=== PATIENT | male | born 1955 | race Caucasian/White ===

== ENCOUNTER 2019-05-10 10:07 | Emergency (ER) | payer SELFPAY ==
[2019-05-10] MEDS ORDERED: Morphine 2 MG/ML SYRINGE ONE (10:21)
[2019-05-10] MEDS ORDERED: Ondansetron PF 4 MG/2 ML Vial ONE (10:21)
[2019-05-10 10:53] LABS: #Basophils 0.1 thou/uL (0.0-0.2); #Eosinphils 0.1 thou/uL (0.0-0.7); #Lymphocytes 1.6 thou/uL (1.20-3.40); #Monocytes 0.3 thou/uL (0.11-0.59); #Neutrophils 5.8 thou/uL (1.40-6.50); %Basophils 1.2 % (0.0-1.0); %Eosinophils 1.2 % (0.0-10.0); %Lymphocytes 19.8 % (21.0-51.0); %Monocytes 4.3 % (0.0-10.0); %Neutrophils 73.5 % (42.0-75.0); Hemoglobin 14.8 g/dL (14.0-18.0); Mean Corpuscular HGB CONC 34.2 g/dL (32.0-36.0); Mean Corpuscular Hemoglobin 31.7 pg (27.0-31.0); Mean Corpuscular Volume 92.5 fL (78.0-98.0); Mean Platelet Volume 8.6 fL (7.4-10.4); Platelet Count 195 thou/uL (130-400); RBC Distribution Width 11.3 % (11.5-14.5); Red Blood Cell (RBC) Count 4.65 mill/uL (4.70-6.10); White Blood Cell (WBC) Count 7.9 thou/uL (4.8-10.8)
[2019-05-10 10:54] LABS: ALT (SGPT) 24 U/L (8-55); AST (SGOT) 18 U/L (5-34); Albumin 3.9 g/dL (3.4-4.8); Alkaline Phosphatase 112 U/L (40-110); Anion Gap 16 mmol/L (10-20); BUN (Urea Nitrogen) 10 mg/dL (8.4-25.7); Bilirubin, Total 0.4 mg/dL (0.2-1.2); Calc. Creatinine Clearance 0 mL/min (70-130); Calcium 9.7 mg/dL (7.8-10.44); Carbon Dioxide 24 mmol/L (23-31); Chloride 103 mmol/L (98-107); Estimated GFR-MDRD Greater than 90; Globulin 3.2 g/dL (2.4-3.5); Glucose 127 mg/dL (80-115); Lipase 10 U/L (8-78); Potassium 3.8 mmol/L (3.5-5.1); Protein, Total 7.1 g/dL (5.8-8.1); Sodium 139 mmol/L (136-145)
[2019-05-10 11:01] LABS: PTT 29.2 SEC (22.9-36.1)
[2019-05-10 11:02] LABS: INR-International Normal Ratio 1.1; Prothrombin Time 14.5 SEC (12.0-14.7)
[2019-05-10 11:12] LABS: Bilirubin Negative (Negative); Blood, Urine Negative (Negative); Clarity Clear (Clear); Glucose, Urine (Dipstick) Negative (Negative); Leukocyte Negative (Negative); Nitrite Negative (Negative); Protein, Urine (Dipstick) Negative (Neg-Trace); Urobilinogen 0.2 mg/dL (Less than 2)
--- NOTE | 2019-05-10 11:27 | CT ---
CT ABDOMEN WITH CONTRAST CT PELVIS WITH CONTRAST: DATE: 05/10/2019 HISTORY: 63-year-old male with abdominal pain COMPARISON: none TECHNIQUE: IV injection of iodinated contrast media: administered. Oral contrast media:Not administered FINDINGS: Broad band of mild infiltrate or atelectasis abutting the right posterior pleural surface at the post erior base of right lower lobe. Emphysematous changes at bilateral lung bases. No pneumoperitoneum or ascites. Normal appendix, kidneys, pancreas, adrenals, and spleen. Mildly low hepatic attenuation may or may n ot represent fatty liver. No other hepatic abnormality. Nonspecific appearance of urinary bladder. Atherosclerosis without aneurysm of abdominal aorta and common iliac arteries. No small bowel dilation. No colonic diverticulitis. Bilateral L5 pars interarticularis defects causing grade 1 anterolisthesis of L5 on S1. Associated mo derate to severe degenerative disc disease at L5-S1, and bilateral neural foraminal stenosis at that level. IMPRESSION: 1. No acute findings within the abdominal cavity or pelvic cavity. 2. Right lower lobe atelectasis versus pneumonia. 3. Grade 1 spondylolisthesis at L5-S1 due to bilateral L5 spondylolysis. Associated high-grade degene rative disc disease and bilateral neural foraminal stenosis.
[2019-05-10] MEDS ORDERED: Iopamidol 370 76% 100 ML VIAL ONE (13:51)
== END 2019-05-10 11:50 | disposition home or self-care (01) ==
LOC: BURERS 10:07
DX: R10.13 Epigastric pain (principal); E11.9 Type 2 diabetes mellitus without complications; F17.210 Nicotine dependence, cigarettes, uncomplicated; Z79.82 Long term (current) use of aspirin; Z79.899 Other long term (current) drug therapy; Z79.84 Long term (current) use of oral hypoglycemic drugs
CPT/HCPCS: 36415; 74177; 80053; 81003; 83690; 85025; 85610; 85730; 96361; 96374; 96375; J2270; J2405; Q9967

== ENCOUNTER 2019-06-05 21:28 | Emergency (ER) | payer SELFPAY ==
[2019-06-05] MEDS ORDERED: Ondansetron PF 4 MG/2 ML Vial ONE (21:48)
[2019-06-05] MEDS ORDERED: Famotidine In NaCl 20 mg/50 ml Premix Bag ONE ×2 (21:48→21:58)
[2019-06-05] MEDS ORDERED: Glycopyrrolate 0.4 MG/ 2 ML VIAL ONE (21:48)
[2019-06-05 22:04] LABS: #Basophils 0.1 thou/uL (0.0-0.2); #Eosinphils 0.1 thou/uL (0.0-0.7); #Lymphocytes 2.2 thou/uL (1.20-3.40); #Monocytes 0.7 thou/uL (0.11-0.59); #Neutrophils 5.1 thou/uL (1.40-6.50); %Basophils 1.1 % (0.0-1.0); %Eosinophils 1.5 % (0.0-10.0); %Neutrophils 62.5 % (42.0-75.0); Hemoglobin 14.6 g/dL (14.0-18.0); Mean Corpuscular HGB CONC 35.8 g/dL (32.0-36.0); Mean Corpuscular Hemoglobin 31.8 pg (27.0-31.0); Mean Corpuscular Volume 88.9 fL (78.0-98.0); Mean Platelet Volume 8.7 fL (7.4-10.4); Platelet Count 229 thou/uL (130-400); RBC Distribution Width 10.6 % (11.5-14.5); Red Blood Cell (RBC) Count 4.58 mill/uL (4.70-6.10); White Blood Cell (WBC) Count 8.2 thou/uL (4.8-10.8)
[2019-06-05 22:05] LABS: Bilirubin Negative (Negative); Blood, Urine Negative (Negative); Clarity Clear (Clear); Glucose, Urine (Dipstick) Negative (Negative); Leukocyte Negative (Negative); Nitrite Negative (Negative); Protein, Urine (Dipstick) Negative (Neg-Trace)
[2019-06-05] MEDS ORDERED: Thiamine HCl 200 MG/2 ML VIAL ONE (22:09)
[2019-06-05 22:17] LABS: ALT (SGPT) 26 U/L (8-55); AST (SGOT) 21 U/L (5-34); Alkaline Phosphatase 100 U/L (40-110); Anion Gap 17 mmol/L (10-20); BUN (Urea Nitrogen) 15 mg/dL (8.4-25.7); Calc. Creatinine Clearance 0 mL/min (70-130); Calcium 9.6 mg/dL (7.8-10.44); Carbon Dioxide 23 mmol/L (23-31); Chloride 96 mmol/L (98-107); Estimated GFR-MDRD Greater than 90; Globulin 3.1 g/dL (2.4-3.5); Glucose 138 mg/dL (80-115); Lipase 10 U/L (8-78); Potassium 3.1 mmol/L (3.5-5.1); Protein, Total 7.1 g/dL (5.8-8.1); Sodium 133 mmol/L (136-145)
[2019-06-05] MEDS ORDERED: Ketorolac Tromethamine 30 MG/ML VIAL ONE (22:32)
--- NOTE | 2019-06-06 06:46 | RAD ---
PORTABLE CHEST: Date: 06/05/2019 An AP portable film at 0947 hours shows hyperinflated lungs consistent with COPD. No infiltrate, effu rolly, or sign of pneumonia was found. There is no vascular congestion or edema. The heart is not enla rged, in fact, it is somewhat smaller than usual. Mediastinum shows no abnormality. IMPRESSION: Hyperexpanded lungs, but no acute findings otherwise. POS: HOME
== END 2019-06-05 23:15 | disposition home or self-care (01) ==
LOC: BURERS 21:28
DX: R10.13 Epigastric pain (principal); R11.2 Nausea with vomiting, unspecified; E11.9 Type 2 diabetes mellitus without complications; F17.210 Nicotine dependence, cigarettes, uncomplicated; Z79.899 Other long term (current) drug therapy; Z79.82 Long term (current) use of aspirin; Z86.73 Personal history of transient ischemic attack (TIA), and cerebral infarction without residual deficits
CPT/HCPCS: 71045; 80053; 81003; 83605; 83690; 84484; 85025; 93005; 94760; 96365; 96375; J1885; J2405; J3411

== ENCOUNTER 2023-04-06 21:19 | Emergency (ER) | payer MEDICARE, SELFPAY ==
[~2023-04-06 21:19] MED LIST: Iopamidol 370 76% 100 ML VIAL ONE
[2023-04-06] MEDS ORDERED: Promethazine HCl 25 MG/ML VIAL ONE (21:29)
[2023-04-06] MEDS ORDERED: Famotidine/PF 20 mg/2ml Vial ONE (21:40)
[2023-04-06 22:14] LABS: #Basophils 0.1 thou/uL (0.0-0.2); #Eosinphils 0.1 thou/uL (0.0-0.7); #Monocytes 0.6 thou/uL (0.11-0.59); #Neutrophils 9.4 thou/uL (1.40-6.50); %Basophils 1.3 % (0.0-1.0); %Eosinophils 1.2 % (0.0-10.0); %Lymphocytes 8.5 % (21.0-51.0); Hematocrit 45.2 % (42.0-52.0); Hemoglobin 15.6 g/dL (14.0-18.0); Mean Corpuscular HGB CONC 34.4 g/dL (32.0-36.0); Mean Corpuscular Hemoglobin 30.8 pg (27.0-31.0); Mean Corpuscular Volume 89.5 fl (78.0-98.0); Mean Platelet Volume 8.6 fL (7.4-10.4); Platelet Count 212 10x3/uL (130-400); RBC Distribution Width 12.2 % (11.5-14.5); Red Blood Cell (RBC) Count 5.05 mill/uL (4.70-6.10); White Blood Cell (WBC) Count 11.2 10x3/uL (4.8-10.8)
[2023-04-06] MEDS ORDERED: Ondansetron PF 4 MG/2 ML Vial ONE (22:14)
[2023-04-06 22:30] LABS: ALT (SGPT) 28 U/L (8-55); AST (SGOT) 24 U/L (5-34); Albumin 3.9 g/dL (3.4-4.8); Alkaline Phosphatase 148 U/L (40-110); Anion Gap 22 mmol/L (10-20); BUN (Urea Nitrogen) 13 mg/dL (8.4-25.7); Bilirubin, Total 0.8 mg/dL (0.2-1.2); Calc. Creatinine Clearance 0 mL/min (70-130); Calcium 9.1 mg/dL (7.8-10.44); Carbon Dioxide 15 mmol/L (23-31); Chloride 103 mmol/L (98-107); Estimated GFR 74; Globulin 3.4 g/dL (2.4-3.5); Glucose 250 mg/dL (80-115); Potassium 3.1 mmol/L (3.5-5.1); Protein, Total 7.3 g/dL (5.8-8.1); Sodium 137 mmol/L (136-145)
[2023-04-06 22:30] LABS: Bilirubin Negative (Negative); Blood, Urine Negative (Negative); Clarity Clear (Clear); Glucose, Urine (Dipstick) 500 mg/dL (Negative); Ketone, Urine 80 mg/dL (Negative); Leukocyte Negative (Negative); Nitrite Negative (Negative); Protein, Urine (Dipstick) Negative (Neg-Trace); Specific Gravity, Urine 1.015 (1.005-1.030); Urobilinogen 0.2 mg/dL (Less than 2)
[2023-04-06 22:31] LABS: Acetaminophen Less than 10 mcg/mL (10.0-30.0); Alcohol Less than 10.0 mg/dL (Less than 10); Lipase 18 U/L (8-78); Salicylate Less than 8.0 mg/dL (15.0-30.0)
[2023-04-06 22:37] LABS: Troponin I Less than 0.010 ng/mL (< 0.028)
[2023-04-06 22:38] LABS: Amphetamine Not Detected (NotDetected); Bacteria/HPF None Seen HPF (None Seen); Barbiturates Screen Not Detected (NotDetected); Benzodiazepine Screen Not Detected (NotDetected); CAUTI Indications for Culture Pelvic or flank pain; Cocaine Metabolite Screen Not Detected (NotDetected); Methadone Not Detected (NotDetected); Methamphetamine Not Detected (NotDetected); Opiate Screen Not Detected (NotDetected); Oxycodone Screen Not Detected (NotDetected); Phencyclidine (PCP) Not Detected (NotDetected); RBC/HPF 0-3 HPF (0-3); Squamous Epithelial 0-3 HPF (0-3); THC/Cannabinoid Screen Not Detected (NotDetected); Tricyclic Screen Not Detected (NotDetected); Urine Culture Reflex No No; WBC/HPF None Seen HPF (0-3)
[2023-04-06] MEDS ORDERED: Potassium Chloride 20 MEQ (100 mL) BAG ONE (22:47)
[2023-04-06] MEDS ORDERED: INSULIN REGULAR IN 0.9 % NACL 100 UNITS/100 ML BAG ONE (22:56)
[2023-04-06] MEDS ORDERED: Metoclopramide HCl 10 MG (2 mL) VIAL ONE (23:00)
[2023-04-06] MEDS ORDERED: fentaNYL 50 mcg/mL 1 mL Vial ONE (23:46)
== END 2023-04-07 | disposition short-term general hospital (02) ==
LOC: BURERS 21:19
DX: E11.10 Type 2 diabetes mellitus with ketoacidosis without coma (principal); E11.43 Type 2 diabetes mellitus with diabetic autonomic (poly)neuropathy; K31.84 Gastroparesis; Z79.4 Long term (current) use of insulin; F17.210 Nicotine dependence, cigarettes, uncomplicated
CPT/HCPCS: 36416; 74022; 74177; 80053; 80306; 80307; 81001; 83605; 83690; 84484; 85025; 93005; 96361; 96365; 96367; 96375; 36415-59; J1815; J2405; J2550; J2765; J3010; J3480; Q9967; S0028